=== PATIENT | female | born 1980 | race American Indian/Alaskan Native ===

== ENCOUNTER 2019-04-22 17:18 | Emergency (ER) | payer OTHER ==
[2019-04-22 17:56] VITALS: BP 152/85
[2019-04-22] MEDS ORDERED: NACL 0.9% 1000 ML 1,000 ML IV ONE (20:46)
[2019-04-22] MEDS ORDERED: REGLAN IV STA (20:46)
[2019-04-22] MEDS ORDERED: BENADRYL IV STA (20:46)
[2019-04-22] MEDS ORDERED: TORADOL IV STA (20:46)
--- NOTE | 2019-04-22 20:50 | Emergency Department Report ---
ED Headache HPI - General Chief Complaint: Headache Stated Complaint: HEADACHE Time Seen by Provider: 04/22/19 20:45 - History of Present Illness Initial Comments: 38-year-old female to emergency Department complaining of a a day history of a dull throbbing headache which begins in the front and radiates to the occipital region associated with intermittent blurred vision. Headache initially started while she was on her period and reports it continued to Susie once his head. He discontinue she attempted to utilize [id number] Tylenol, but that was unsuccessful recommendations. Reports no neck pain, f ever, chills, sweats, odynophagia, chest pain. She denies any head trauma. Quality: moderate Head Injury Location: frontal, parietal Recent Head Trauma: no recent headache/trauma Associated Symptoms: denies: facial pain, fever/chills, flushing, loss of consciousness, nausea/vomiting, nasal congestion, nasal drainage, vision changes, weakness Allergies/Adverse Reactions: Allergies No Known Allergies Allergy (Unverified 12/07/15 10:06) Home Medications: Ambulatory Orders Ibuprofen [Motrin] 800 mg PO Q8HR PRN #30 tablet 09/14/18 predniSONE [Deltasone] 50 mg PO QDAY #5 tab 09/14/18 ED Review of Systems ROS: Stated complaint: HEADACHE Other details as noted in HPI Comment: All other systems reviewed and negative ED Past Medical Hx - Past Medical History Hx Hypertension: Yes - Surgical History Past Surgical History?: No - Social History Smoking Status: Never Smoker Substance Use Type: None - Medications Home Medications: Home Medications Medication Instructions Recorded Confirmed Last Taken Type Ibuprofen [Motrin] 800 mg PO Q8HR PRN #30 tablet 09/14/18 Unknown Rx predniSONE [Deltasone] 50 mg PO QDAY #5 tab 09/14/18 Unknown Rx ED Physical Exam - General Limitations: No Limitations General appearance: alert, in no apparent distress - Head Head exam: Present: atraumatic, normocephalic - Eye Eye exam: Present: normal appearance - ENT ENT exam: Present: mucous membranes moist, other (negative funduscopic examination. Pupils PERRLA, EOMI. Mild nystagmus noted) - Neck Neck exam: Present: normal inspection, full ROM. Absent: tenderness, lymphadenopathy, thyromegaly - Respiratory Respiratory exam: Present: normal lung sounds bilaterally. Absent: respiratory distress - Cardiovascular Cardiovascular Exam: Present: regular rate, normal rhythm. Absent: systolic murmur, diastolic murmur, rubs, gallop - GI/Abdominal GI/Abdominal exam: Present: soft, normal bowel sounds - Extremities Exam Extremities exam: Present: normal inspection - Back Exam Back exam: Present: normal inspection - Neurological Exam Neurological exam: Present: alert, oriented X3, CN II-XII intact, normal gait, other (there is dizziness with rotation of the head. Does feel a little bit unsteady during Romberg toO) - Psychiatric Psychiatric exam: Present: normal affect, normal mood. Absent: anxious, manic, homicidal ideation - Skin Skin exam: Present: warm, dry, intact, normal color. Absent: rash ED Course Vital Signs 04/22/19 17:53 Temperature 98.4 F Pulse Rate 63 Respiratory 19 Rate Blood Pressure 152/85 [Left] O2 Sat by Pulse 100 Oximetry Critical care attestation.: If time is entered above; I have spent that time in minutes in the direct care of this critically ill patient, excluding procedure time. ED Disposition Clinical Impression: Cephalgia Disposition: DC-01 TO HOME OR SELFCARE Is pt being admited?: No Does the pt Need Aspirin: No Condition: Critical Referrals: MARIAM CASTELLANO MD [Primary Care Provider] - 3-5 Days
--- NOTE | 2019-04-22 21:54 | Cat Scan Report ---
PROCEDURE: CT HEAD/BRAIN WO CON TECHNIQUE: Computerized tomography of the head was performed without contrast material. CT DOSE LENGTH PRODUCT: 920.5 mGycm HISTORY: headache COMPARISONS: None . FINDINGS: Skull and scalp: Normal . Paranasal sinuses: Normal . Ventricles and subarachnoid spaces: Normal . Cerebrum: No evidence of hemorrhage, acute infarction or mass . Cerebellum and brainstem: No evidence of hemorrhage, acute infarction or mass . Vasculature: Normal . Other: None . ASPECTS: 10 IMPRESSION: Normal Examination . This document is electronically signed by Geovanni Chin MD., April 22 2019 09:52:49 PM ET
== END 2019-04-22 23:40 | disposition home or self-care (01) ==
LOC: ED 17:18
DX: R51 Headache (principal); R42 Dizziness and giddiness; I10 Essential (primary) hypertension; Z79.1 Long term (current) use of non-steroidal anti-inflammatories (NSAID)
CPT/HCPCS: 70450; 96361; 96374; 96375; 99283; J1200; J1885; J2765; J7030